=== PATIENT | female | born 1930 | race Caucasian/White ===

== ENCOUNTER → 2017-03-26 | Day surgery (SDC) | payer MEDICARE, OTHER ==
[~2017-03-26] VITALS: Ht 165.1 cm; Wt 57.7 kg
[2017-03-26 07:52] LABS: HCT 35.4 % (37.0-47.0); HGB 11.5 g/dl (12.5-16.0); MCH 31.1 pg (25.0-31.0); MCHC 32.5 g/dL (32.0-36.0); MCV 95.7 fL (78.0-100.0); MPV 9.8 fL (6.0-9.5); RBC 3.7 M/uL (4.20-5.40); RDW 14.9 % (11.5-14.0); WBC 8.9 K/uL (4.0-10.5)
[2017-03-26 08:17] LABS: ALBUMIN 3.6 g/dL (3.4-4.8); BILIRUBIN - TOTAL 0.9 mg/dL (0.1-1.0); CREATININE 0.5 mg/dL (0.5-1.0); GLOBULIN (CALCULATION) 2.5 g/dL (2.2-4.2); TOTAL PROTEIN 6.1 g/dL (6.4-8.3)
== END | disposition home or self-care (01) ==
LOC: FAS 07:22
PROVIDERS: Surgery
DX: K64.1 Second degree hemorrhoids (principal); K64.4 Residual hemorrhoidal skin tags; I10 Essential (primary) hypertension; I48.91 Unspecified atrial fibrillation; E78.5 Hyperlipidemia, unspecified; E78.00 Pure hypercholesterolemia, unspecified; E03.9 Hypothyroidism, unspecified; F41.9 Anxiety disorder, unspecified; K21.9 Gastro-esophageal reflux disease without esophagitis; M19.90 Unspecified osteoarthritis, unspecified site; M81.0 Age-related osteoporosis without current pathological fracture; Z88.5 Allergy status to narcotic agent; Z88.8 Allergy status to other drugs, medicaments and biological substances; Z96.659 Presence of unspecified artificial knee joint; Z90.49 Acquired absence of other specified parts of digestive tract; Z90.710 Acquired absence of both cervix and uterus; Z98.49 Cataract extraction status, unspecified eye; Z83.6 Family history of other diseases of the respiratory system; Z79.82 Long term (current) use of aspirin; Z79.1 Long term (current) use of non-steroidal anti-inflammatories (NSAID); Z79.899 Other long term (current) drug therapy; Z98.890 Other specified postprocedural states
CPT/HCPCS: 36415; 80053; J1100; J2704

== ENCOUNTER 2017-04-02 07:31 | Emergency (ER) | payer MEDICARE, OTHER ==
[2017-04-02 09:48] LABS: BILIRUBIN NEGATIVE (NEGATIVE); BLOOD 2+ Ery/uL (NEGATIVE); CLARITY CLEAR (CLEAR); COLOR YELLOW (YELLOW); GLUCOSE (U) NORMAL (NORMAL); KETONE (U) NEGATIVE (NEGATIVE); LEUKOCYTES 1+ Leu/uL (NEGATIVE); NITRITE POSITIVE (NEGATIVE); PROTEIN 1+ mg/dL (NEGATIVE); SPECIFIC GRAVITY 1.015 (1.001-1.030); UROBILINOGEN 0.2 mg/dL (0.2-1.0)
[2017-04-02 09:50] LABS: BACTERIA 1+
== END 2017-04-02 11:05 | disposition home or self-care (01) ==
LOC: FER 07:31
PROVIDERS: Internal Medicine
DX: S23.3XXA Sprain of ligaments of thoracic spine, initial encounter (principal); S70.12XA Contusion of left thigh, initial encounter; S70.11XA Contusion of right thigh, initial encounter; E03.9 Hypothyroidism, unspecified; Z79.899 Other long term (current) drug therapy; Z88.8 Allergy status to other drugs, medicaments and biological substances; W18.30XA Fall on same level, unspecified, initial encounter
CPT/HCPCS: 70450; 72072; 73552; 81001; 86403; 87077; 87088; 93005